=== PATIENT | female | born 1975 | race African-American/Black ===

== ENCOUNTER 2022-09-28 14:00 | Emergency (ER) | payer OTHER, SELFPAY ==
--- NOTE | ~2022-09-28 | CT_ITS ---
EXAMINATION: CT cervical spine wo con DATE: 09/28/2022 17:33 INDICATION: Neck pain TECHNIQUE: Computed tomography (CT) of the cervical spine was performed without intravenous contrast. Automated exposure control and iterative reconstruction technique were employed. The dose-length pro duct was 302.68 mGy-cm. COMPARISON: None. FINDINGS: Vertebral Body Alignment: Intact. Reversed lordosis centered at C4-5. Minimal, 2 mm anterolisthesis a t C4-5, with mild posterior element widening and uncovering of the bilateral facet joints. Craniocervical and atlantoaxial alignment: No significant degenerative change. Alignment intact. Osseous structures/fracture: No evidence of a lytic or blastic process in the visualized spine. No e vidence of acute fracture. Unfused posterior arch at C7. Cervical soft tissues: The paraspinal soft tissues planes are maintained. Degenerative changes: No significant degenerative changes. No severe central canal or neural foramina l narrowing. IMPRESSION: No acute fracture in the cervical spine. Reversed cervical lordosis, grade 1 anterolisthesis at C4-5, and mild posterior element widening with facet joint uncovering, may be secondary to positioning or indicate the presence of ligamentous inju ry. Consider conservative management and MRI of the cervical spine for further evaluation. Reviewed, dictated and finalized at location K. IMPRESSION: No acute fracture in the cervical spine. Reversed cervical lordosis, grade 1 anterolisthesis at C4-5, and mild posterior element widening with facet joint uncovering, may be secondary to positioning or indicate the presence of ligamentous injury. Consider conservative managemen t and MRI of the cervical spine for further evaluation.
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
[2022-09-28 14:02] VITALS: BP 181/126; PULSE 114; RESP 16; TEMP 36.6; O2SAT 99
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
[2022-09-28] MEDS: oxyCODONE/ACETAMINOPHEN (*CRX) 5-325 MG TABLET 1 TABLET PO (17:09)
[2022-09-28] MEDS: Please add drug allergy info to patient profile. 1 EACH XX (17:10)
[2022-09-28 17:40] LABS: Estimated CRCL calculation 67 ml/min; Estimated Glomerular Filt Rate > 60
== END 2022-09-28 19:02 | disposition home or self-care (01) ==
PROVIDERS: Emergency Provider Preventive Medicine Aerospace Medicine
DX: S19.9XXA Unspecified injury of neck, initial encounter (principal); S39.92XA Unspecified injury of lower back, initial encounter; I10 Essential (primary) hypertension; V43.52XA Car driver injured in collision with other type car in traffic accident, initial encounter
CPT/HCPCS: 70450; 71260; 72125; 72129; 72132; 74177; 99284; A9270; L0140; Q9967